=== PATIENT | female | born 1945 | race Caucasian/White ===

== ENCOUNTER 2018-08-31 05:53 | Inpatient (IN) | payer MEDICAID ==
[~2018-08-31] VITALS: Ht 157.5 cm; Wt 71.2 kg
--- NOTE | 2018-08-31 06:05 | NUR ---
Pt. ambulated into ED accompanied by daughter w/ c/o CP/SOB that has been worsening since last night, A/Ox4, RR even and unlabored, Farsi speaking, speaks in clear and complete sentences, daughter is translating, denies F/C/N/V/D
[2018-08-31 06:15] LABS: BASOPHILS # (AUTO) 0.1 K/uL (0.0-8.0); BASOPHILS % (AUTO) 1.2 % (0.0-2.0); EOSINOPHILS # (AUTO) 0.3 K/uL (0.0-0.7); EOSINOPHILS % (AUTO) 3.3 % (0.0-7.0); HEMOGLOBIN 12.3 g/dL (10.9-14.3); LYMPHOCYTES # (AUTO) 4.4 K/uL (20.0-40.0); LYMPHOCYTES % (AUTO) 54.5 % (20.5-51.5); MEAN CORPUSCULAR HEMOGLOBIN 21.9 uug (24.7-32.8); MEAN CORPUSCULAR HGB CONC 32 g/dL (32.3-35.6); MEAN CORPUSCULAR VOLUME 69.6 fL (75.5-95.3); MONOCYTES # (AUTO) 0.6 K/uL (2.0-10.0); MONOCYTES % (AUTO) 7.2 % (0.0-11.0); NEUTROPHILS # (AUTO) 2.7 K/uL (1.8-8.9); NEUTROPHILS % (AUTO) 33.8 % (38.5-71.5); PLATELET COUNT (AUTO) 189 K/uL (179-408)
--- NOTE | 2018-08-31 06:15 | NUR ---
at bedside for MSE
[2018-08-31] MEDS ORDERED: ASPI-605 PO (06:19)
[2018-08-31] MEDS ORDERED: LEVO100T10 PO (06:19)
[2018-08-31] MEDS ORDERED: LOSA1TAB36 PO (06:19)
[2018-08-31] MEDS ORDERED: METOPROLOL PO (06:19)
[2018-08-31] MEDS ORDERED: PROP10TA10 PO (06:19)
[2018-08-31] MEDS ORDERED: [UNRECOGNIZED DRUG - OTHER] IM (06:19)
--- NOTE | 2018-08-31 06:20 | NUR ---
Pt. placed in gown,
--- NOTE | 2018-08-31 06:23 | NUR ---
Rad. tech. at bedside for CXR
[2018-08-31 06:25] LABS: CARBON DIOXIDE 26 mmol/L (21-32); CHLORIDE 105 mmol/L (98-107); GLUCOSE 117 mg/dL (74-106); UREA NITROGEN, BLOOD 24 mg/dL (7-18)
[2018-08-31] MEDS ORDERED: DILTIAZEM HCL IV 125 MG in IV DEXTROSE 5% 100 ML IV PRN (06:30)
[2018-08-31] MEDS ORDERED: DILTIAZEM HCL 50 MG IV ONE (06:34)
[2018-08-31] MEDS ORDERED: DILTIAZEM HCL 25 MG IV ONE (06:34)
[2018-08-31 06:37] LABS: ALANINE AMINOTRANSFERASE 22 U/L (14-59); ALKALINE PHOSPHATASE 152 U/L (50-136); ASPARTATE AMINOTRANSFERASE 12 U/L (15-37); BILIRUBIN,DIRECT 0.2 mg/dL (0.0-0.2); BILIRUBIN,TOTAL 0.6 mg/dL (0.2-1.0); TOTAL PROTEIN, SERUM 6.9 g/dL (6.4-8.2)
[2018-08-31] MEDS ORDERED: IV NORMAL SALINE 1000 ML BAG IV ONE (06:45)
--- NOTE | 2018-08-31 07:16 | NUR ---
Gave report to Benson GODINEZ,
--- NOTE | 2018-08-31 07:24 | NUR ---
US tech. at bedside,
[2018-08-31] MEDS ORDERED: SWABABLE VALVE TRANSFER SET EA MC ONE (08:08)
[2018-08-31] MEDS ORDERED: IOHEXOL 300MG/ML 100 ML INFUS..BTL ONE (08:08)
[2018-08-31] MEDS ORDERED: IV NORMAL SALINE 250 ML IV ONE (08:08)
[2018-08-31 08:10] LABS: EOSINOPHILS % (MANUAL) 4 % (0-8); LYMPHOCYTES % (MANUAL) 59 % (20-40); MONOCYTES % (MANUAL) 4 % (2-10); NEUTROPHILS % (MANUAL) 31 % (42-75)
[2018-08-31 08:14] LABS: REACTIVE LYMPHOCYTES 2 % (0-0)
--- NOTE | 2018-08-31 08:34 | NUR ---
Pt returned from CTA with radiologist. Pt stable and nad noted upon returning to the ER.
[2018-08-31 09:22] LABS: *BILIRUBIN,URIN NEGATIVE (NEGATIVE); *BLOOD, URINE NEGATIVE (NEGATIVE); *CLARITY,URINE CLEAR (CLEAR); *COLOR,URINE YELLOW (YELLOW); *KETONES,URINE NEGATIVE (NEGATIVE); *UROBILINOGEN,URINE 0.2 E.U./dl (NORMAL); LEUKOCYTE ESTERASE ,URINE NEGATIVE (NEGATIVE); NITRITE, URINE NEGATIVE (NEGATIVE); PH,URINE 5.5 (5.0-8.0); UGLUCOSE NEGATIVE (NEGATIVE)
--- NOTE | 2018-08-31 10:46 | NUR ---
Brought the pt down via wheelchair to rm #[id number] with daughter. Pt stable and nad noted upon leaving the ER.
[2018-08-31 10:58] VITALS: BP 108/47
[2018-08-31 11:15] VITALS: BP 90/52
[2018-08-31] MEDS ORDERED: IV NORMAL SALINE 500 ML IV ONE (12:15)
[2018-08-31] MEDS ORDERED: DIGOXIN 500 MCG/2 ML AMP IV ONE (12:15)
[2018-08-31] MEDS: APIXABAN 5 MG TABLET PO SCH ×2 (14:41→17:22)
[2018-08-31 15:08] VITALS: BP 90/45
[2018-08-31 16:49] VITALS: BP 106/50
--- NOTE | 2018-08-31 16:53 | NUR ---
PATIENT IS ADMITTED FOR UNCONTROLLED AFIB, EXAMINED BY BARROW WORKER DR RM, FULL CODE, 2GM SODIUM DIET, PATIENT IS ALERT, ORIENTED X4, VERBALLY RESPONSIVE, NO SOB, RESP EVEN NONLABORED, SKIN WARM AND DRY TO TOUCH, PATIENT TOLERATED LUNCH WELL, GRANDSON IS BED SIDE, TRANSLATING FOR HER, NO ACUTE DISTRESS NOTED AT THIS TIME. CONTINUE TO MONITOR
[2018-08-31] MEDS ORDERED: ORLI120C22 PO (17:40)
[2018-08-31] MEDS ORDERED: ATOR10TA PO (17:40)
[2018-08-31] MEDS ORDERED: CETI10TA14 PO (17:40)
[2018-08-31] MEDS ORDERED: FOLI1TAB16 PO (17:40)
[2018-08-31] MEDS ORDERED: OMEG1CAP PO (17:40)
--- NOTE | 2018-08-31 17:52 | NUR ---
PATIENT'S DAUGHTER BROUGHT PATIENT'S HOME MEDS, ALL THE MEDS ARE IN AND PAGED DR RAMON FOR MED RECON.
[2018-08-31] MEDS ORDERED: DIGOXIN 500 MCG/2 ML AMP IV SCH (18:15)
--- NOTE | 2018-08-31 18:35 | NUR ---
SPOKE TO DR EDWARDS AND REQUESTED FOR MED RECON.
--- NOTE | 2018-08-31 18:37 | NUR ---
PATIENT IS ALERT, ORIENTED X4, VERBALLY RESPONSIVE, NO SOB, RESP EVEN NONLABORED,SKIN WARM AND DRY TO TOUCH, NO ACUTE DISTRESS NOTED, SINUS RHYTHM, TOLERATED MEALS AND MEDS WELL, WILL ENDORSE TO NEXT SHIFT ACCORDINGLY.
[2018-08-31 20:08] VITALS: BP 107/48
[2018-08-31] MEDS: ZOLPIDEM 5 MG TABLET PO PRN (22:02)
[2018-08-31] MEDS: ATORVASTATIN 10 MG TABLET PO SCH (22:03)
[2018-09-01 00:15] VITALS: BP 99/48
[2018-09-01 05:26] VITALS: BP 105/57
[2018-09-01] MEDS: LEVOTHYROXINE SODIUM 100 MCG TABLET PO SCH (06:34)
--- NOTE | 2018-09-01 06:47 | NUR ---
END OF SHIFT REPORT Patient rested well in between care; no acute distress; SR on tele; bed alarm on; needs attended.
--- NOTE | 2018-09-01 07:15 | NUR ---
RECEIVED PATIENT ON BED, AWAKE AAOX4 ON TELE SR. NO ACUTE DISTRESS NOTED. FARSI SPEAKING ONLY. SAFETY AND COMFORT MEASURES PROVIDED. CALL LIGHT WITHIN REACH. WILL CONTINUE TO MONITOR CLOSELY
[2018-09-01] MEDS: OMEGA-3 FATTY ACIDS/FISH OIL CAPSULE PO SCH (08:21)
[2018-09-01] MEDS: FOLIC ACID 1 MG TABLET PO SCH (08:21)
[2018-09-01] MEDS: CETIRIZINE HCL 10 MG TABLET PO SCH (08:22)
[2018-09-01] MEDS: APIXABAN 5 MG TABLET PO SCH ×2 (08:23→17:26)
[2018-09-01] MEDS ORDERED: DIGOXIN 125 MCG TABLET PO SCH (09:00)
[2018-09-01] MEDS ORDERED: HYDROCHLOROTHIAZIDE 12.5 MG CAPSULE PO SCH (09:00)
[2018-09-01] MEDS ORDERED: LOSARTAN POTASSIUM 50 MG TABLET PO SCH (09:00)
[2018-09-01] MEDS ORDERED: Medication Not On Formulary EA (Losartan/Hydrochlorothiazide (Losartan-Hctz 50-12.5 Mg T PO SCH (09:00)
[2018-09-01] MEDS ORDERED: ASPIRIN EC 81 MG TABLET.DR PO SCH (09:00)
[2018-09-01 11:45] VITALS: BP 120/60
--- NOTE | 2018-09-01 15:15 | NUR ---
PATIENT/PATIENT'S DAUGHTER ASKED TO SPEAK TO DR. BEAL, PAGED DR. BEAL AND MADE AWARE. SAID HE WILL SEE PATIENT IN 20 MINS.
--- NOTE | 2018-09-01 15:35 | NUR ---
PATIENT SEEN AND EXAMINED BY PATIENT, DAUGHTER WAS PRESENT. Addendum: 09/01/18 at 1617 by ZIA PAINTING RN PATIENT SEEN AND EXAMINED BY DR. BEAL, DAUGHTER WAS PRESENT. Addendum: 09/01/18 at 1617 by ZIA PAINTING RN EARLIER ENTRY ERROR
[2018-09-01 16:00] VITALS: BP 107/52
--- NOTE | 2018-09-01 19:34 | NUR ---
Rec'd pt in bed awake with grandson and daughter at bedside. On RA, no s/s of acute distress noted. Denies pain. LFA 22g IV saline lock in place. Denies any chest complaints. All safety precautions in place. Will monitor.
[2018-09-01 20:21] VITALS: BP 120/50
[2018-09-01] MEDS: METOPROLOL TARTRATE 25 MG TABLET PO SCH (21:05)
[2018-09-01] MEDS: ATORVASTATIN 10 MG TABLET PO SCH (21:05)
--- NOTE | 2018-09-01 22:30 | NUR ---
Pt c/o 810 headache towards her left latter-day. Dtr at bedside translating. VS: 98.0 53 18 97% on RA 114/52. No standing PRN pain meds. Relayed to Dr. Escoto and obtained new order for Tylenol 650mg PO PRN Q6hrs. Per daughter patient has taken Tylenol before and it should be enough for the headache. Telephone order read back and verified. Ok to give Ambien as ordered if pt request.
[2018-09-01] MEDS: ZOLPIDEM 5 MG TABLET PO PRN (22:41)
[2018-09-01] MEDS ORDERED: ACETAMINOPHEN 325 MG TABLET PO PRN (22:45)
--- NOTE | 2018-09-02 00:15 | NUR ---
Pt in bed asleep. Easily arousable to name and touch. No s/s of discomfort. Ambien and Tylenol effective. All safety precautions in place. Will cont to monitor.
[2018-09-02 06:07] VITALS: BP 114/52
[2018-09-02] MEDS: LEVOTHYROXINE SODIUM 100 MCG TABLET PO SCH (06:10)
[2018-09-02 06:45] LABS: EOSINOPHILS # (AUTO) 0.2 K/uL (0.0-0.7); EOSINOPHILS % (AUTO) 4.2 % (0.0-7.0); HEMATOCRIT 34.7 % (31.2-41.9); HEMOGLOBIN 10.9 g/dL (10.9-14.3); LYMPHOCYTES # (AUTO) 2.2 K/uL (20.0-40.0); LYMPHOCYTES % (AUTO) 49.2 % (20.5-51.5); MEAN CORPUSCULAR HGB CONC 32 g/dL (32.3-35.6); MEAN CORPUSCULAR VOLUME 69.8 fL (75.5-95.3); MONOCYTES # (AUTO) 0.3 K/uL (2.0-10.0); MONOCYTES % (AUTO) 7.6 % (0.0-11.0); NEUTROPHILS # (AUTO) 1.7 K/uL (1.8-8.9); PLATELET COUNT (AUTO) 154 K/uL (179-408); RED BLOOD CELL COUNT(AUTO) 4.97 MIL/uL (3.63-4.92); WHITE BLOOD COUNT (AUTO) 4.5 K/uL (3.8-11.8)
--- NOTE | 2018-09-02 07:10 | NUR ---
RECEIVED PATIENT IN BED SLEEPING, NO DISTRESS NOTED. BED IN LOWEST POSITION, SIDE RAILS UP X2, CALL LIGHT WITHIN REACH. WILL CONTINUE TO MONITOR.
[2018-09-02 07:35] LABS: ALANINE AMINOTRANSFERASE 19 U/L (14-59); ALKALINE PHOSPHATASE 112 U/L (50-136); ASPARTATE AMINOTRANSFERASE 13 U/L (15-37); BILIRUBIN,TOTAL 0.5 mg/dL (0.2-1.0); CARBON DIOXIDE 30 mmol/L (21-32); CHLORIDE 107 mmol/L (98-107); CHOLESTEROL 82 mg/dL (<200); CREATININE 0.7 mg/dL (0.6-1.3); GLUCOSE 98 mg/dL (74-106); HDL CHOLESTEROL 43 mg/dL (40-60); PHOSPHOROUS 3.2 mg/dL (2.5-4.9); POTASSIUM 3.8 mmol/L (3.5-5.1); TOTAL PROTEIN, SERUM 6.3 g/dL (6.4-8.2); TRIGLYCERIDES 80 MG/DL (30-150); UREA NITROGEN, BLOOD 13 mg/dL (7-18)
[2018-09-02 07:45] LABS: IRON, SERUM 113 ug/dL (50-175)
[2018-09-02] MEDS: CETIRIZINE HCL 10 MG TABLET PO SCH (08:20)
[2018-09-02] MEDS: FOLIC ACID 1 MG TABLET PO SCH (08:20)
[2018-09-02] MEDS: OMEGA-3 FATTY ACIDS/FISH OIL CAPSULE PO SCH (08:20)
[2018-09-02] MEDS: METOPROLOL TARTRATE 25 MG TABLET PO SCH (08:21)
[2018-09-02] MEDS: APIXABAN 5 MG TABLET PO SCH (08:22)
[2018-09-02 11:07] VITALS: BP 102/50
--- NOTE | 2018-09-02 13:40 | NUR ---
DISCHARGES PATIENT TO HOME. REVIEWED D/C INSTRUCTIONS WITH DAUGHTER AND PATIENT. PRESCRIPTIONS GIVEN. NO DISTRESS NOTED AT THIS TIME. ACCOMPANIED PATIENT DOWNSTAIRS, WITH NO COMPLICATIONS.
== END 2018-09-02 13:30 | disposition home health service (06) | DRG 201 ==
LOC: ER 05:55 → TELE3 09:10 → MEDSURG3 09-01 13:46
PROVIDERS: ADMIT Internal Medicine; ATTEND Internal Medicine
PROC: 3E033RZ Introduction of Antiarrhythmic into Peripheral Vein, Percutaneous Approach (ICD-10-PCS; principal; 2018-08-31)
DX: I48.91 Unspecified atrial fibrillation (principal); N17.0 Acute kidney failure with tubular necrosis; I50.33 Acute on chronic diastolic (congestive) heart failure; I11.0 Hypertensive heart disease with heart failure; I48.2 Chronic atrial fibrillation; Z79.890 Hormone replacement therapy; E03.9 Hypothyroidism, unspecified; I25.10 Atherosclerotic heart disease of native coronary artery without angina pectoris; E78.5 Hyperlipidemia, unspecified; Z79.899 Other long term (current) drug therapy; E66.9 Obesity, unspecified; Z68.28 Body mass index [BMI] 28.0-28.9, adult; D68.59 Other primary thrombophilia; D72.820 Lymphocytosis (symptomatic); I70.0 Atherosclerosis of aorta; Z79.82 Long term (current) use of aspirin
CPT/HCPCS: 36415; 70030-TC; 71045; 71260; 83550; 83735; 84100; 84443; 85025; 85730; 93005; 93307; A4663; G0378; J3490; J7030; J7040; J7050; J7060; Q9967